=== PATIENT | male | born 1950 | race Caucasian/White ===

== ENCOUNTER 2017-07-09 06:59 | Emergency (ER) | payer MEDICARE ==
[2017-07-09] MEDS ORDERED: Nitroglycerin 0.4 MG TAB (25 Tab Bottle) ONE (07:31)
[2017-07-09 07:39] LABS: #Basophils 0.1 thou/uL (0.0-0.2); #Eosinphils 0.1 thou/uL (0.0-0.7); #Lymphocytes 1.7 thou/uL (1.20-3.40); #Monocytes 0.6 thou/uL (0.11-0.59); #Neutrophils 3.3 thou/uL (1.40-6.50); %Basophils 1.8 % (0.0-1.0); %Eosinophils 1.8 % (0.0-10.0); %Lymphocytes 29.2 % (21.0-51.0); %Monocytes 10.6 % (0.0-10.0); Hematocrit 45.9 % (42.0-52.0); Mean Platelet Volume 8.2 fL (7.4-10.4); Red Blood Cell (RBC) Count 4.74 mill/uL (4.70-6.10); White Blood Cell (WBC) Count 5.8 thou/uL (4.8-10.8)
[2017-07-09 07:45] LABS: Prothrombin Time 12.5 SEC (12.0-14.7)
--- NOTE | 2017-07-09 07:58 | RAD ---
AP VIEW CHEST: Date: 07/09/17 HISTORY: Chest pain. FINDINGS: Comparison made to previous exam from 02/02/17. AP view of chest demonstrates the lungs to be well aerated. No evidence of active intrathoracic disea se seen. No evidence of effusions, pneumonia, or pneumothorax seen. IMPRESSION: Unremarkable AP view of chest. POS: [facility]
[2017-07-09 08:00] LABS: ALT (SGPT) 16 U/L (8-55); AST (SGOT) 18 U/L (5-34); Alkaline Phosphatase 66 U/L (40-150); Anion Gap 10 mmol/L (10-20); BUN (Urea Nitrogen) 17 mg/dL (8.4-25.7); Calc. Creatinine Clearance 0 mL/min (70-130); Calcium 9.1 mg/dL (7.8-10.44); Carbon Dioxide 28 mmol/L (23-31); Chloride 103 mmol/L (98-107); Estimated GFR-MDRD Greater than 90; Globulin 2.9 g/dL (2.4-3.5); Lipase 21 U/L (8-78); Magnesium 2.5 mg/dL (1.6-2.6); Protein, Total 6.9 g/dL (5.8-8.1)
[2017-07-09 08:04] LABS: Troponin I Less than 0.010 ng/mL (< 0.028)
[2017-07-09 11:07] LABS: Troponin I Less than 0.010 ng/mL (< 0.028)
== END 2017-07-09 11:30 | disposition home or self-care (01) ==
LOC: ERS 06:59
DX: R07.89 Other chest pain (principal); M25.512 Pain in left shoulder; E78.5 Hyperlipidemia, unspecified; K21.9 Gastro-esophageal reflux disease without esophagitis; I10 Essential (primary) hypertension; F17.210 Nicotine dependence, cigarettes, uncomplicated; Z87.442 Personal history of urinary calculi; Z79.82 Long term (current) use of aspirin; Z79.899 Other long term (current) drug therapy
CPT/HCPCS: 36415; 71010; 80053; 81001; 82553; 83690; 83735; 84484; 85025; 85610; 87086; 93005

== ENCOUNTER 2017-07-10 13:39 | Outpatient (CLI) | payer MEDICARE ==
--- NOTE | 2017-07-10 15:44 | ULT ---
ULTRASOUND RETROPERITONEUM COMPLETE: (RENAL) DATE: 07-10-17 HISTORY: 67-year-old female with frequency of micturition. FINDINGS: Right kidney: 10.5 x 6 x 6.5 cm Left kidney: 12.5 x 7 x 6.5 cm There is a 5 x 5 x 4 cm partially exophytic parenchymal cyst at the left renal mid-lower pole anterio rly. No hydronephrosis bilaterally. Pre void urinary bladder volume is 40 ml at the time of this scan, and the bladder is difficult to ev aluate because it is not full. IMPRESSION: 1. A 5 cm left renal cyst. 2. No other renal pathology identified. 3. Poor evaluation of the urinary bladder. BRUCE Carmichael POS: [facility]
== END 2017-07-10 13:40 | disposition home or self-care (01) ==
LOC: ULT 13:39
PROVIDERS: ATTEND Urology
DX: R35.0 Frequency of micturition (principal); N28.1 Cyst of kidney, acquired
CPT/HCPCS: 76770

== ENCOUNTER 2018-01-02 09:03 | Outpatient (CLI) | payer MEDICARE ==
[2018-01-02 10:02] LABS: Bilirubin Negative (Negative); Blood, Urine Negative (Negative); Clarity Clear (Clear); Glucose, Urine (Dipstick) Negative (Negative); Leukocyte Negative (Negative); Nitrite Negative (Negative); Protein, Urine (Dipstick) Negative (Neg-Trace); Specific Gravity, Urine 1.015 (1.005-1.030); Urobilinogen 0.2 mg/dL (0.2-1.0); pH, Urine 7.5 (5.0-9.0)
[2018-01-02 10:11] LABS: Anion Gap 14 mmol/L (10-20); BUN (Urea Nitrogen) 22 mg/dL (8.4-25.7); Calc. Creatinine Clearance 0 mL/min (70-130); Calcium 9.4 mg/dL (7.8-10.44); Carbon Dioxide 27 mmol/L (23-31); Chloride 104 mmol/L (98-107); Estimated GFR-MDRD Greater than 90; Glucose 101 mg/dL (80-115); Potassium 3.9 mmol/L (3.5-5.1); Sodium 141 mmol/L (136-145)
[2018-01-02 11:02] LABS: RBC/HPF None Seen HPF (0-3); Squamous Epithelial 0-3 HPF (0-3); WBC/HPF 0-3 HPF (0-3)
[2018-01-02 11:03] LABS: Bacteria/HPF None Seen HPF (None Seen)
--- NOTE | 2018-01-02 11:45 | ULT ---
RENAL ULTRASOUND: HISTORY: Cystic kidney disease. Multiple renal calculi. COMPARISON: 12/09/16, 07/10/17. TECHNIQUE: Sagittal and transverse imaging of the kidneys is performed. FINDINGS: There is bilateral renal cortical thinning. No hydronephrosis. The right kidney measures 7.3 x 5.8 x 11.7 cm. The left kidney measures 7.4 x 6.9 x 12.4 cm. There are echogenic foci in the left and r ight renal cortex suggesting cortical-based calcifications. No evidence of obstruction. There is an exophytic anechoic focus emanating from the inferior aspect of the left kidney, similar in location to the previous examination. The lesion measures 5.4 x 4.6 x 4.2 cm. Limited evaluation of the urinary bladder. The prostate gland appears to be enlarged and causes mass effect upon the floor of the bladder. Enlarged prostate gland measures 3.8 x 4.0 x 4. 3 cm. IMPRESSION: 1. Redemonstration of an essentially stable cyst emanating from the lower pole of the left kidney. 2. Punctate echogenic foci in the kidneys, compatible with parenchymal calculi. 3. Enlarged prostate gland. POS: [facility]
== END 2018-01-02 09:04 | disposition home or self-care (01) ==
LOC: SCSULT 09:03
PROVIDERS: ATTEND Urology
DX: N20.0 Calculus of kidney (principal); Z12.5 Encounter for screening for malignant neoplasm of prostate; N40.1 Benign prostatic hyperplasia with lower urinary tract symptoms; N35.9 Urethral stricture, unspecified; R31.29 Other microscopic hematuria; R35.0 Frequency of micturition; Q61.9 Cystic kidney disease, unspecified; R93.421 Abnormal radiologic findings on diagnostic imaging of right kidney; R93.422 Abnormal radiologic findings on diagnostic imaging of left kidney; Z87.442 Personal history of urinary calculi
CPT/HCPCS: 36415; 76770; 80048; 81001; 87077; 87086; 87186; 88112; G0103

== ENCOUNTER 2019-01-16 09:15 | Outpatient (CLI) | payer MEDICARE ==
--- NOTE | 2019-01-16 09:59 | RAD ---
EXAM: Supine abdomen: INDICATIONS: Enlarged prostate COMPARISON: 12/07/2014 FINDINGS: Nonspecific bowel gas pattern. Scattered stool and gas throughout colon. Scattered small antonella wel gas without significant small bowel dilatation. No soft tissue mass effect or abnormal calcification. Mild degenerative changes in the spine. IMPRESSION: Nonspecific bowel gas pattern
--- NOTE | 2019-01-16 10:07 | ULT ---
EXAM: Renal ultrasound: INDICATIONS: Enlarged prostate COMPARISON: None. FINDINGS: Both kidneys measure approximately 12 cm length. 5 cm cyst from the inferior pole left kidney. No hydronephrosis or renal mass lesion. Mild cortical thinning. Cortical echogenicity appears normal. Urinary bladder contracted. Prevoid bladder volume recorded 18 cc. IMPRESSION: Left renal cyst as described.
== END 2019-01-16 09:16 | disposition home or self-care (01) ==
LOC: ULT 09:15
PROVIDERS: ATTEND Urology
DX: N40.1 Benign prostatic hyperplasia with lower urinary tract symptoms (principal); Q61.01 Congenital single renal cyst; Z87.442 Personal history of urinary calculi
CPT/HCPCS: 36415; 74018; 76770; 80048; 81001; 87086

== ENCOUNTER 2019-03-04 10:56 | Outpatient (CLI) | payer MEDICARE ==
--- NOTE | 2019-03-04 11:25 | RAD ---
KUB: HISTORY: Enlarged prostate with urinary tract infection symptoms. History of renal calculi and congenital juan c al cysts. COMPARISON: 01/16/2019 FINDINGS: A single view of the abdomen shows a nonspecific, nonobstructed bowel gas pattern. No suspicious darci cifications are seen. Degenerative changes are seen in the spine. IMPRESSION: No urinary collecting system calcifications identified. POS: [facility]
== END 2019-03-04 10:57 | disposition home or self-care (01) ==
LOC: RAD 10:56
PROVIDERS: ATTEND Urology
DX: N40.1 Benign prostatic hyperplasia with lower urinary tract symptoms (principal); Q61.01 Congenital single renal cyst; Z87.442 Personal history of urinary calculi
CPT/HCPCS: 36415; 74018; 81001; 87086; G0103

== ENCOUNTER 2019-04-09 12:47 | Outpatient (CLI) | payer MEDICARE ==
[2019-04-09 14:45] LABS: Bacteria/HPF None Seen HPF (None Seen); Bilirubin Negative (Negative); Blood, Urine Negative (Negative); Clarity Clear (Clear); Glucose, Urine (Dipstick) Normal (Negative); Hemoglobin 14.2 g/dL (14.0-18.0); Leukocyte Negative Leu/uL (Negative); Mean Corpuscular HGB CONC 33.8 g/dL (32.0-36.0); Mean Corpuscular Hemoglobin 31.5 pg (27.0-31.0); Mean Corpuscular Volume 93.2 fL (78.0-98.0); Mean Platelet Volume 9.2 fL (7.4-10.4); Nitrite Negative (Negative); Platelet Count 219 thou/uL (130-400); Protein, Urine (Dipstick) Negative (Neg-Trace); RBC Distribution Width 12.7 % (11.5-14.5); RBC/HPF 0-3 HPF (0-3); Red Blood Cell (RBC) Count 4.52 mill/uL (4.70-6.10); Squamous Epithelial 0-3 HPF (0-3); WBC/HPF 0-3 HPF (0-3); White Blood Cell (WBC) Count 9.1 thou/uL (4.8-10.8)
[2019-04-09 14:51] LABS: PTT 30.6 SEC (22.9-36.1); Prothrombin Time 12.9 SEC (12.0-14.7)
[2019-04-09 15:06] LABS: Anion Gap 14 mmol/L (10-20); BUN (Urea Nitrogen) 18 mg/dL (8.4-25.7); Calc. Creatinine Clearance 0 mL/min (70-130); Calcium 9.7 mg/dL (7.8-10.44); Carbon Dioxide 25 mmol/L (23-31); Chloride 105 mmol/L (98-107); Estimated GFR-MDRD Greater than 90; Glucose 105 mg/dL (80-115); Potassium 3.5 mmol/L (3.5-5.1); Sodium 140 mmol/L (136-145)
--- NOTE | 2019-04-10 17:29 | EKG ---
Test Reason : Blood Pressure : / mmHG Vent. Rate : 072 BPM Atrial Rate : 072 BPM P-R Int : 190 ms QRS Dur : 090 ms QT Int : 370 ms P-R-T Axes : 052 001 009 degrees QTc Int : 405 ms Sinus rhythm with Fusion complexes Low voltage QRS Cannot rule out Anterior infarct , age undetermined Abnormal ECG Confirmed by ALIYAH JOEL ([id number]) on 04/10/2019 5:29:17 PM Referred By: BROOKE Confirmed By:ALIYAH JOEL
== END 2019-04-09 12:48 | disposition home or self-care (01) ==
LOC: LABBT 12:47
PROVIDERS: ATTEND Urology
DX: Z01.818 Encounter for other preprocedural examination (principal); Z12.5 Encounter for screening for malignant neoplasm of prostate; N40.1 Benign prostatic hyperplasia with lower urinary tract symptoms; R35.0 Frequency of micturition; N35.919 Unspecified urethral stricture, male, unspecified site; Q61.9 Cystic kidney disease, unspecified; R31.29 Other microscopic hematuria; Z87.898 Personal history of other specified conditions; Z87.442 Personal history of urinary calculi
CPT/HCPCS: 80048; 81001; 85027; 85610; 85730; 87086; 93005; 93010

== ENCOUNTER 2019-04-23 06:04 | Day surgery (SDC) | payer MEDICARE ==
[2019-04-09 13:10] VITALS: BMI 44.6
[2019-04-23] MEDS ORDERED: Levofloxacin 500 mg/D5W 100 ml Premix Bag ONE (07:12)
[2019-04-23] MEDS ORDERED: Fentanyl 100 MCG/2 ML VIAL ONE ×2 (07:13→09:57)
[2019-04-23] MEDS ORDERED: Midazolam HCl 2 mg/2 ml Vial ONE (07:13)
[2019-04-23] MEDS ORDERED: Propofol 500 MG/50 ML VIAL ONE (07:13)
[2019-04-23] MEDS ORDERED: Oxybutynin 5 MG TAB ONE (09:50)
[2019-04-23] MEDS ORDERED: Phenazopyridine HCl 97.5 MG TABLET ONE (09:50)
[2019-04-23] MEDS ORDERED: HYDROcodone/Acetaminophen 5/325 mg Tablet ONE (10:41)
--- NOTE | 2019-04-23 11:17 | OP ---
DATE OF PROCEDURE: 04/23/2019 PRIMARY CARE PHYSICIAN: Dr. Yasmani Arias. PREOPERATIVE DIAGNOSES: 1. A 69-year-old male with history of benign prostatic hypertrophy. 2. Fossa navicularis, meatus, mild urethral stenosis. 3. Bulbar stricture. POSTOPERATIVE DIAGNOSES: 1. A 69-year-old male with history of benign prostatic hypertrophy. 2. Fossa navicularis, meatus, mild urethral stenosis. 3. Bulbar stricture. PROCEDURES PERFORMED: 1. Cystoscopy. 2. Meatal calibration and dilatation. 3. Direct vision internal urethrotomy of bulbar stricture. 4. UroLift implant x6. 5. An 18-Uruguayan Jackson tip Maza catheter placed without guidewire assist, 10 mL insufflated. ANESTHESIA: LMA. COMPLICATIONS: None apparent. DISPOSITION: To recovery room in stable condition. SPECIMENS: None. INDICATIONS FOR PROCEDURE AND HISTORY: Mr. Krishnamurthy is a 69-year-old male, well known to me with history of prior retention, penile bulbar urethral stricture, BPH, and history of kidney stones. He desired to proceed with UroLift implant, concomitant treatment of his urethral stricture. Risks and complications and indications were reviewed with him in detail. Risks and complications including, but not limited to, bleeding, pain, infection, injury to adjacent organs, urosepsis, migration of UroLift implant resulting in incrustation requiring secondary procedure, chronic pain, injury to adjacent structures, recurrent nature of urethral stricture disease reviewed and he desired to proceed. DESCRIPTION OF PROCEDURE: After an informed consent was signed, the patient was taken to the operating room, placed in a dorsal lithotomy position with the genital area prepped and draped in the usual surgical sterile fashion. Bilateral RAFAELA hose SCDs and broad-spectrum antibiotics were provided. A 21-Uruguayan cystoscope was 1st utilized. There was some resistance at the meatus fossa. Therefore, we used Raphael sounds to calibrate his meatus 16-Uruguayan easily and we dilated to 24-Uruguayan with ease. Subsequently, the 21-Uruguayan scope was able to be passed. His urethral mucosa did demonstrate diffuse area of fibrotic changes. There were intermittent areas of stricture along the proximal penile bulbar urethra. I was able to gently negotiate the scope to the level of the prostate into the bladder. Bilobar hyperplasia with moderate obstruction was noted with no median bar. UOs were away from the bladder neck as previously staged. At this time, we transitioned to a 21-Uruguayan UroLift cystoscope with a 0-degree lens. We re-staged the prostatic urethra and the first implant was delivered, minimum 1.5 cm distal to the bladder neck. We treated the left side 1st, creating an anterior channel. Total of 6 implants were required to create a nice open anterior channel. At the end of the procedure, his bladder neck was wide open, with a good anterior channel. At the apex, there was some bulging of the apical tissue; however, this was nonobstructing. Therefore, we did not treat this region. We took intraoperative pictures, demonstrating a good anterior channel. I re-staged his urethral stricture. One of the strictures were somewhat close to the sphincter. Therefore, I did not perform a DVIU and it appeared to be wide caliber and dilated with the scope. There was a 2nd annular stricture at the bulbar urethra with persistent annular morphology. Therefore, using an [facility] DVIU cold knife, we released the stricture anteriorly. Subsequently, I was able to pass an 18-Uruguayan Jackson tip without guidewire assist to the level of the bladder, 10 mL insufflated, and he tolerated the procedure well. He was discharged with an indwelling Maza catheter, ciprofloxacin one p.o. b.i.d. x10 days, Azo p.r.n., Colace p.r.n., tramadol #30 one p.o. q.6 h. p.r.n. at 50 mg, VESIcare 5 mg one p.o. daily for 7 days. Appointment with me next for catheter removal, voiding trial. He was advised to continue his BPH medications, hold aspirin until followup appointment. Job ID: [id number]
--- NOTE | 2019-04-24 11:31 | HP ---
HISTORY OF PRESENT ILLNESS: Mr. Krishnamurthy is a 69-year-old male with history of BPH, history of urinary retention, PVR of 200 mL on dual medical therapy, presents today for cysto UroLift. He previously underwent workup with cystoscopy, volume study. Also found to have prior history of fossa navicularis stricture, urethral stricture with concomitant treatment plan. PAST MEDICAL HISTORY: Includes hypertension, dyslipidemia, morbid obesity, GERD , arthritis, sleep apnea, liver cyst. PAST SURGICAL HISTORY: Cystoscopy, total knee replacement, gastric sleeve, cholecystectomy, hernia repair, prior cystoscopy, DVIU. FAMILY HISTORY: Positive for diabetes. SOCIAL HISTORY: Former smoker, quit. ALLERGIES: TO BIAXIN AND BACTRIM. REVIEW OF SYSTEMS: 10-point review of systems as above, otherwise noncontributory. PHYSICAL EXAMINATION: VITAL SIGNS: Stable. HEENT: Grossly unremarkable. HEART: Regular rate. LUNGS: Clear. ABDOMEN: Morbidly obese. GENITOURINARY: Partially buried penis due to morbid obesity. JESUS, no gross nodules. EXTREMITIES: No significant calf tenderness. IMPRESSION AND PLAN: Mr. Krishnamurthy is a 69-year-old male with history of hypertension, morbid obesity, BPH, history of urethral stricture. He desires to discontinue his BPH medications, therefore presents for cysto, DVIU, possible urethral stricture dilatation, UroLift. Informed consent obtained and in chart. We will proceed with surgery as planned. Job ID: [id number] MTDD
== END 2019-04-23 13:30 | disposition home or self-care (01) ==
LOC: SDC 06:04
PROVIDERS: ATTEND Urology
PROC: 0TND8ZZ Release Urethra, Via Natural or Artificial Opening Endoscopic (ICD-10-PCS; principal; 2019-04-23)
PROC: 0T7D8DZ Dilation of Urethra with Intraluminal Device, Via Natural or Artificial Opening Endoscopic (ICD-10-PCS; 2019-04-23)
DX: N40.1 Benign prostatic hyperplasia with lower urinary tract symptoms (principal); R35.0 Frequency of micturition; R33.8 Other retention of urine; N35.911 Unspecified urethral stricture, male, meatal; N35.912 Unspecified bulbous urethral stricture, male; M19.90 Unspecified osteoarthritis, unspecified site; I10 Essential (primary) hypertension; E78.5 Hyperlipidemia, unspecified; K21.9 Gastro-esophageal reflux disease without esophagitis; G47.30 Sleep apnea, unspecified; Q61.9 Cystic kidney disease, unspecified; F17.290 Nicotine dependence, other tobacco product, uncomplicated; E66.01 Morbid (severe) obesity due to excess calories; Z68.41 Body mass index [BMI] 40.0-44.9, adult; Z79.82 Long term (current) use of aspirin; Z79.899 Other long term (current) drug therapy; Z88.2 Allergy status to sulfonamides; Z88.8 Allergy status to other drugs, medicaments and biological substances; Z98.84 Bariatric surgery status
CPT/HCPCS: 52276; C1889; C9740; J1956; J2250; J2704; J3010

== ENCOUNTER 2020-02-17 13:16 | Outpatient (CLI) | payer MEDICARE ==
--- NOTE | 2020-02-17 14:24 | ULT ---
RENAL ULTRASOUND: HISTORY: Followup renal cyst. COMPARISON: 01/16/2019 exam. FINDINGS: Real-time imaging of the right and left kidneys was performed. The right kidney measures 12 cm and t he left kidney measures 12 cm in length. There is an exophytic cyst involving more the inferior aspe ct of the left kidney. It measures 4.8 x 5.3 cm and is not felt to be substantially changed. There is an echogenic area within the mid pole region of the left kidney not definitely shadowing, therefor e I think unlikely to represent a calculus. IMPRESSION: 1. Stable appearance of the lower pole left renal cyst. 2. The bladder was almost empty at the time of this exam. POS: [facility]
== END 2020-02-17 13:17 | disposition home or self-care (01) ==
LOC: BICULT 13:16
PROVIDERS: ATTEND Urology
DX: N40.1 Benign prostatic hyperplasia with lower urinary tract symptoms (principal); Q61.9 Cystic kidney disease, unspecified; Z87.898 Personal history of other specified conditions
CPT/HCPCS: 36415; 76770; 81001; G0103

== ENCOUNTER 2020-02-28 00:29 | Observation (INO) | payer MEDICARE, OTHER ==
[2020-02-28 01:40] LABS: Bacteria/HPF 2+ HPF (None Seen); Bilirubin Negative (Negative); Blood, Urine 3+ (Negative); Clarity Turbid (Clear); Glucose, Urine (Dipstick) Normal (Negative); Ketone, Urine Negative (Negative); Leukocyte 25 Leu/uL (Negative); Nitrite Negative (Negative); Protein, Urine (Dipstick) 100 mg/dL (Neg-Trace); RBC/HPF Greater than 50 HPF (0-3); Specific Gravity, Urine 1.015 (1.002-1.036); Squamous Epithelial None Seen HPF (0-3); Urobilinogen Normal mg/dL (Less than 2); WBC/HPF 21-50 HPF (0-3); pH, Urine 5.5 (5.0-9.0)
[2020-02-28 04:24] LABS: #Basophils 0.1 thou/uL (0.0-0.2); #Eosinphils 0.1 thou/uL (0.0-0.7); #Monocytes 0.9 thou/uL (0.11-0.59); #Neutrophils 9.6 thou/uL (1.40-6.50); %Basophils 0.5 % (0.0-1.0); %Eosinophils 0.5 % (0.0-10.0); %Lymphocytes 16.1 % (21.0-51.0); %Monocytes 6.7 % (0.0-10.0); %Neutrophils 76.1 % (42.0-75.0); Hemoglobin 14.5 g/dL (14.0-18.0); Mean Corpuscular HGB CONC 32.5 g/dL (32.0-36.0); Mean Corpuscular Hemoglobin 31.3 pg (27.0-31.0); Mean Corpuscular Volume 96.3 fL (78.0-98.0); Mean Platelet Volume 9.2 fL (7.4-10.4); Platelet Count 258 thou/uL (130-400); RBC Distribution Width 12.9 % (11.5-14.5); Red Blood Cell (RBC) Count 4.62 mill/uL (4.70-6.10); White Blood Cell (WBC) Count 12.7 thou/uL (4.8-10.8)
[2020-02-28 04:43] LABS: Anion Gap 13 mmol/L (10-20); BUN (Urea Nitrogen) 21 mg/dL (8.4-25.7); Calc. Creatinine Clearance 0 mL/min (70-130); Calcium 9.8 mg/dL (7.8-10.44); Carbon Dioxide 26 mmol/L (23-31); Chloride 104 mmol/L (98-107); Estimated GFR-MDRD 65; Glucose 127 mg/dL (80-115); Potassium 4.2 mmol/L (3.5-5.1); Sodium 139 mmol/L (136-145)
[2020-02-28 07:08] VITALS: BMI 42.7
[2020-02-28] MEDS ORDERED: diphenhydrAMINE 50 MG/ML VIAL IVP PRN (09:41)
[2020-02-28] MEDS ORDERED: HYDROcodone/Acetaminophen 5/325 mg Tablet PO PRN (09:41)
[2020-02-28] MEDS ORDERED: hydrALAZINE 20 MG/ML VIAL SLOW IVP PRN (09:41)
[2020-02-28] MEDS ORDERED: Zolpidem Tartrate 5 MG TAB PO PRN (09:41)
[2020-02-28] MEDS ORDERED: Ketorolac Tromethamine 30 MG/ML VIAL IVP PRN (09:41)
[2020-02-28] MEDS ORDERED: Phenazopyridine HCl 97.5 MG TABLET PO PRN (09:41)
--- NOTE | 2020-02-28 10:59 | OP ---
DATE OF PROCEDURE: 02/28/2020 PROCEDURE: Under sterile conditions, the drainage bag was removed from the drainage port of the three-way catheter. A catheter tip syringe was used to irrigate the bladder with about 300 mL of normal saline removing a few small clots. The drainage bag was then reconnected and CBI re-initiated. The patient tolerated the procedure well. Job ID: [id number]
--- NOTE | 2020-02-28 11:04 | HP ---
CHIEF COMPLAINT: Catheter pain, hematuria. HISTORY OF PRESENT ILLNESS: This is a 69-year-old male with a history of enlarged prostate and urethral stricture, status post UroLift and DVIU in April 2019. He was recently seen by Dr. Deluna on February 25 as a work-in after calling the office reporting that he was passing blood clots in his urine. She performed cystoscopy with no obvious source of bleed and placed a 20-Citizen Of [place] 3-way catheter. Urinalysis at that time was unremarkable. Late yesterday, he presented to the emergency room in [place] with his catheter not draining. This was irrigated and he was discharged home. However, it again became clotted and he is having significant discomfort, so he presented to the emergency room here in [place] overnight. Given that he had been to the emergency room twice within 12 hours, I elected to have him admitted. He has been managed with CBI since admission and currently, his urine is light pink on slow CBI. He reports that his discomfort has almost completely resolved. He currently denies suprapubic pain, flank pain, nausea, vomiting, fevers and chills, headaches, chest pains, or difficulty breathing. PAST MEDICAL HISTORY: Kidney stones, obesity, reflux, hyperlipidemia, hypertension. PAST SURGICAL HISTORY: UroLift, DVIU x2, gastric sleeve, bilateral knee replacement. SOCIAL HISTORY: The patient smokes cigars about twice per month. Otherwise, no cigarette smoking, no substance abuse, lives with his in [place], currently retired. ALLERGIES: CLARITHROMYCIN, SULFAMETHOXAZOLE. CURRENT MEDICATIONS: Reviewed, no pertinent urology medications. REVIEW OF SYSTEMS: 12-point review of systems performed, negative except as mentioned in my HPI. PHYSICAL EXAMINATION: VITAL SIGNS: Afebrile. Vitals are stable. GENERAL: No acute distress, conversant. HEENT: Head, normocephalic and atraumatic. Extraocular movements intact. Sclerae nonicteric. NECK: Supple. Trachea midline. LUNGS: Breathing unlabored. Symmetric chest expansion. HEART: Regular rate and rhythm. ABDOMEN: Soft, nontender, nondistended. : No suprapubic or flank tenderness. Three-way 20-Citizen [place] Maza catheter in good position draining light pink urine on slow CBI, small amount of blood around the meatus. EXTREMITIES: No peripheral edema or clubbing. SKIN: Warm and dry. PSYCHIATRIC: Normal mood and affect. NEUROLOGIC: Alert and oriented x3. LABORATORY DATA: Lab work reviewed. White count 12.7, hemoglobin 14.5. Creatinine 1.11. Urinalysis; 25 leukocyte esterase, negative nitrite. ASSESSMENT AND PLAN: On hospital day 1, gross hematuria with clot retention, benign prostatic hypertrophy with lower urinary tract symptoms. We are going to arrange a CT urogram while he is here to evaluate his upper tracts as his recent cystoscopy was unremarkable. Continue CBI, titrate as able. Given the positive leukocyte esterase, I am starting him on ceftriaxone while he is here. 75 minutes spent in the patient care. Job ID: [id number]
[2020-02-28] MEDS ORDERED: Iopamidol-370 76% 500 ML 1 ML ONE (12:21)
--- NOTE | 2020-02-28 12:32 | CT ---
CT ABDOMEN AND PELVIS PERFORMED WITH AND WITHOUT CONTRAST ENHANCEMENT: HISTORY: Hematuria for about a week. Surgical history of gastric sleeve and cholecystectomy. COMPARISON: A CT examination of 06/18/2015. FINDINGS: The lung bases are clear of infiltrative process. The liver, spleen, and pancreas regions appear unremarkable other than fatty change to the liver. Ga llbladder has been removed. Postop changes of the stomach are noted. The right and left adrenal glands and right and left kidneys are normal in size. A left renal cyst i s seen. It measures 5.4 cm. There are no renal calculi identified. There are additionally some smal l subcentimeter hypodensities involving both kidneys. These are too small to characterize but have a n appearance more suggestive of small cysts. No obstruction. No significant periaortic or mesenteri c adenopathy. CT OF PELVIS PERFORMED WITH AND WITHOUT CONTRAST ENHANCEMENT: A fat-containing paraumbilical hernia is seen. No pelvic lymphadenopathy or mass. The bladder has a Maza catheter in place. Postop changes in the prostate region are noted. There are arthritic changes of the spine. IMPRESSION: 1. Bilateral renal cysts. 2. Fatty changes of the liver. 3. Maza catheter in place within the bladder. POS: [facility]
[2020-02-28] MEDS: cefTRIAXone\\ROCEPHIN 1 GM in Sodium Chloride 0.9% 100 ML IVPB SCH (12:41)
[2020-02-28] MEDS: Hyoscyamine Sulfate SL 0.125 mg Tablet SL SCH ×3 (12:42→23:40)
[2020-02-28] MEDS: Sodium Chloride 0.9% 1,000 ML IV SCH (12:42)
[2020-02-28 14:15] LABS: SARS-CoV-2 MS2 Positive; SARS-CoV-2 N Gene Negative; SARS-CoV-2 S Gene Negative; SARS-CoV-2 by NAA Not Detected (NotDetected); SARS-CoV-2 orf1ab Negative
[2020-02-28] MEDS: Docusate 100 MG CAP PO SCH (20:19)
[2020-02-28] MEDS ORDERED: Atorvastatin Calcium 20 MG TAB PO SCH (21:00)
[2020-02-29] MEDS: Sodium Chloride 0.9% 1,000 ML IV SCH ×3 (00:10→08:37)
[2020-02-29] MEDS: Hyoscyamine Sulfate SL 0.125 mg Tablet SL SCH ×2 (05:32→11:27)
[2020-02-29 07:33] VITALS: TEMP 98.2
[2020-02-29] MEDS: Docusate 100 MG CAP PO SCH (08:31)
[2020-02-29] MEDS ORDERED: Aspirin Chewable 81 MG TAB PO SCH (09:00)
[2020-02-29 10:44] VITALS: BP 140/54
[2020-02-29] MEDS: cefTRIAXone\\ROCEPHIN 1 GM in Sodium Chloride 0.9% 100 ML IVPB SCH (11:26)
--- NOTE | 2020-03-01 12:26 | DIS ---
DATE OF ADMISSION: 02/28/2020 DATE OF DISCHARGE: 02/29/2020 CHIEF COMPLAINT: Catheter pain, hematuria. HOSPITAL COURSE: The patient presented to the emergency room here on February 27 early in the morning reporting issues with the catheter not draining secondary to blood clots and catheter pain. His catheter was irrigated and started on CBI and he was admitted under observation. Lab work was stable in the morning and CT scan was obtained later in the day to complete hematuria workup showing no upper tract abnormalities. The following morning, February 28, his urine remained clear off CBI. He was having no discomfort. He was tolerating oral intake and stable for discharge home. DISCHARGE PHYSICAL EXAMINATION: GENERAL: No acute distress, conversant. LUNGS: Unlabored breathing. Symmetric chest expansion. HEART: Regular rate and rhythm. NECK: Supple. Trachea midline. ABDOMEN: Soft, nontender, nondistended. No suprapubic tenderness. No flank tenderness. Normal penile exam. Maza catheter in good position, draining clear urine off CBI. SKIN: Warm and dry. NEUROLOGIC: Alert and oriented x3. EXTREMITIES: No peripheral edema or clubbing. PSYCHIATRIC: Normal mood and affect. DISCHARGE DIAGNOSES: Hematuria, enlarged prostate with lower urinary tract symptoms, hypertension. DISCHARGE PLAN: The patient already has followup scheduled for tomorrow morning at 10:[address] Deluna. DISCHARGE INSTRUCTIONS: Light nonstressful activities, resume normal diet, continue Cipro as previously prescribed. Job ID: [id number]
== END 2020-02-29 14:15 | disposition home or self-care (01) ==
LOC: ERS 00:29 → SURG B 06:41
PROVIDERS: ADMIT Urology; ATTEND Urology
DX: R31.0 Gross hematuria (principal); N40.1 Benign prostatic hyperplasia with lower urinary tract symptoms; I10 Essential (primary) hypertension; T83.84XA Pain due to genitourinary prosthetic devices, implants and grafts, initial encounter; T83.098A Other mechanical complication of other urinary catheter, initial encounter; E78.5 Hyperlipidemia, unspecified; K21.9 Gastro-esophageal reflux disease without esophagitis; F17.290 Nicotine dependence, other tobacco product, uncomplicated; N28.1 Cyst of kidney, acquired; K42.9 Umbilical hernia without obstruction or gangrene; K76.0 Fatty (change of) liver, not elsewhere classified; E78.00 Pure hypercholesterolemia, unspecified; E66.9 Obesity, unspecified; Z68.41 Body mass index [BMI] 40.0-44.9, adult; Z79.82 Long term (current) use of aspirin; Z79.899 Other long term (current) drug therapy; Z88.1 Allergy status to other antibiotic agents; Z88.2 Allergy status to sulfonamides; Z96.653 Presence of artificial knee joint, bilateral; Z98.84 Bariatric surgery status; Z20.828 Contact with and (suspected) exposure to other viral communicable diseases
CPT/HCPCS: 74178; 80048; 85025; 99284; U0003; 81003; 81015; 87635; 96361; 96365; 96375; 96376; G0378; J0360; J0696; J3490; Q9967

== ENCOUNTER 2020-03-02 12:10 | Outpatient (CLI) | payer MEDICARE | END 2020-03-02 12:11 | disposition home or self-care (01) | LOC: LABBT 12:10 | PROVIDERS: ATTEND Urology | DX: Z01.810 Encounter for preprocedural cardiovascular examination (principal); N40.0 Benign prostatic hyperplasia without lower urinary tract symptoms | CPT/HCPCS: 88112; 93005; 93010 ==

== ENCOUNTER 2020-03-03 07:50 | Observation (INO) | payer MEDICARE ==
[2020-03-02 13:56] LABS: INR-International Normal Ratio 0.9; PTT 27.3 sec (22.9-36.1); Prothrombin Time 12.3 sec (12.0-14.7)
[2020-03-02 14:00] LABS: #Basophils 0.1 thou/uL (0.0-0.2); #Eosinphils 0.1 thou/uL (0.0-0.7); #Lymphocytes 1.7 thou/uL (1.20-3.40); #Monocytes 0.6 thou/uL (0.11-0.59); #Neutrophils 6.7 thou/uL (1.40-6.50); %Basophils 0.9 % (0.0-1.0); %Eosinophils 1.3 % (0.0-10.0); %Lymphocytes 18.2 % (21.0-51.0); %Monocytes 6.9 % (0.0-10.0); %Neutrophils 72.6 % (42.0-75.0); Hemoglobin 14.5 g/dL (14.0-18.0); Mean Corpuscular HGB CONC 32.8 g/dL (32.0-36.0); Mean Corpuscular Hemoglobin 31.7 pg (27.0-31.0); Mean Corpuscular Volume 96.7 fL (78.0-98.0); Mean Platelet Volume 9.3 fL (7.4-10.4); Platelet Count 224 thou/uL (130-400); RBC Distribution Width 12.7 % (11.5-14.5); Red Blood Cell (RBC) Count 4.56 mill/uL (4.70-6.10); White Blood Cell (WBC) Count 9.2 thou/uL (4.8-10.8)
[2020-03-02 14:13] VITALS: BMI 46.7
[2020-03-02 14:24] LABS: Anion Gap 13 mmol/L (10-20); BUN (Urea Nitrogen) 19 mg/dL (8.4-25.7); Calc. Creatinine Clearance 0 mL/min (70-130); Calcium 9.2 mg/dL (7.8-10.44); Carbon Dioxide 26 mmol/L (23-31); Chloride 107 mmol/L (98-107); Estimated GFR-MDRD 76; Glucose 136 mg/dL (80-115); Potassium 3.6 mmol/L (3.5-5.1); Sodium 142 mmol/L (136-145)
[2020-03-03] MEDS ORDERED: Lidocaine 1% PF 5 ML VIAL ONE (09:00)
[2020-03-03] MEDS ORDERED: PROPOFOL 200 MG/20 ML VIAL ONE (09:00)
[2020-03-03] MEDS ORDERED: Ondansetron PF 4 MG/2 ML Vial ONE (09:00)
[2020-03-03] MEDS ORDERED: Metoprolol Tartrate 5 MG/5 ML VIAL ONE (09:00)
[2020-03-03] MEDS ORDERED: Succinylcholine Chloride 20 MG/ML 10 ml SYRINGE FS ONE (09:00)
[2020-03-03] MEDS ORDERED: Rocuronium Bromide 10 MG/ML (10ML VIAL) ONE (09:00)
[2020-03-03] MEDS ORDERED: Metoclopramide HCl 10 MG/2 ML VIAL ONE (09:00)
[2020-03-03] MEDS ORDERED: Levofloxacin 500 mg/D5W 100 ml Premix Bag ONE (09:26)
[2020-03-03] MEDS ORDERED: Iothalamate Meglumine 60% 50 ML VIAL FS ONE (11:50)
[2020-03-03] MEDS ORDERED: Fentanyl 100 MCG/2 ML VIAL ONE (11:51)
[2020-03-03] MEDS ORDERED: Famotidine/PF 20 mg/2ml Vial ONE (11:52)
[2020-03-03] MEDS ORDERED: SUGAMMADEX SODIUM 500 MG/5 ML VIAL ONE (12:01)
[2020-03-03] MEDS ORDERED: Promethazine HCl 25 MG/ML VIAL IM PRN (13:09)
[2020-03-03] MEDS ORDERED: Promethazine HCl 25 MG/ML VIAL SLOW IVP PRN (13:09)
[2020-03-03] MEDS ORDERED: Ondansetron HCl/PF 4 MG/2 ML Vial IVP PRN (13:09)
[2020-03-03] MEDS ORDERED: Zolpidem Tartrate 5 MG TAB PO PRN (13:20)
[2020-03-03] MEDS ORDERED: Mag-Al 1200 mg/1200 mg/30 ML UDCUP PO PRN (13:20)
[2020-03-03] MEDS ORDERED: Phenazopyridine HCl 97.5 MG TABLET PO PRN (13:20)
[2020-03-03] MEDS ORDERED: HYDROcodone/Acetaminophen 5/325 mg Tablet PO PRN ×2 (13:20)
[2020-03-03] MEDS ORDERED: Docusate 100 MG CAP PO PRN (13:20)
[2020-03-03] MEDS ORDERED: hydrALAZINE 20 MG/ML VIAL SLOW IVP PRN ×2 (13:20)
[2020-03-03] MEDS ORDERED: diphenhydrAMINE 50 MG/ML VIAL IVP PRN (13:20)
[2020-03-03 13:59] LABS: #Basophils 0.1 thou/uL (0.0-0.2); #Eosinphils 0.2 thou/uL (0.0-0.7); #Lymphocytes 1.9 thou/uL (1.20-3.40); #Monocytes 0.7 thou/uL (0.11-0.59); #Neutrophils 4.7 thou/uL (1.40-6.50); %Basophils 1.4 % (0.0-1.0); %Eosinophils 2.2 % (0.0-10.0); %Lymphocytes 24.9 % (21.0-51.0); %Monocytes 9.1 % (0.0-10.0); %Neutrophils 62.5 % (42.0-75.0); Hemoglobin 13.7 g/dL (14.0-18.0); Mean Corpuscular HGB CONC 32.6 g/dL (32.0-36.0); Mean Corpuscular Hemoglobin 31.9 pg (27.0-31.0); Mean Corpuscular Volume 97.9 fL (78.0-98.0); Mean Platelet Volume 8.6 fL (7.4-10.4); Platelet Count 186 thou/uL (130-400); RBC Distribution Width 12.7 % (11.5-14.5); Red Blood Cell (RBC) Count 4.29 mill/uL (4.70-6.10); White Blood Cell (WBC) Count 7.6 thou/uL (4.8-10.8)
[2020-03-03] MEDS ORDERED: cefTRIAXone\\ROCEPHIN 1 GM in Sodium Chloride 0.9% 100 ML IVPB SCH (14:00)
[2020-03-03 14:19] LABS: Anion Gap 14 mmol/L (10-20); BUN (Urea Nitrogen) 19 mg/dL (8.4-25.7); Calc. Creatinine Clearance 180 mL/min (70-130); Calcium 8.7 mg/dL (7.8-10.44); Carbon Dioxide 24 mmol/L (23-31); Chloride 105 mmol/L (98-107); Estimated GFR-MDRD Greater than 90; Glucose 104 mg/dL (80-115); Potassium 3.8 mmol/L (3.5-5.1); Sodium 139 mmol/L (136-145)
[2020-03-03] MEDS: Sodium Chloride 0.9% 1,000 ML IV SCH ×2 (15:29→20:34)
--- NOTE | 2020-03-03 15:43 | OP ---
DATE OF PROCEDURE: 03/03/2020 PREOPERATIVE DIAGNOSES: 1. A 69-year-old male with history of benign prostatic hyperplasia, status post UroLift. 2. History of intermittent gross hematuria. POSTOPERATIVE DIAGNOSES: 1. A 69-year-old male with history of benign prostatic hyperplasia, status post UroLift. 2. History of intermittent gross hematuria. PROCEDURES PERFORMED: Cystoscopy, laser vaporization of the prostate, retrieval of UroLift implant x1., Meatal calibration dilatation with Jamaal sounds ANESTHESIA: General. COMPLICATIONS: None apparent. DISPOSITION: To recovery room in stable condition. INDICATIONS FOR PROCEDURE AND HISTORY: Mr. Krishnamurthy is a pleasant 69-year-old male with history of BPH, he was deemed a good surgical candidate for UroLift based on his prostate volume and cystoscopy and underwent UroLift implant uneventfully back in April 2019. A total of 6 implants were placed, he also underwent meatal dilatation concomitantly at that time. Implants demonstrated good anterior channel and he is very satisfied with his urinary caliber and flow. I recently saw him in my office as he had intermittent gross hematuria. As there was persistent hematuria, a local cystoscopy was performed demonstrating no exposed implants per se. No evidence of bladder neck migration of the implant was noted. No active bleeding from the bladder was noted. There was mild prostatic oozing nonspecific. CT of the abdomen and pelvis demonstrated no acute pathology of concern. He presents today for cystoscopy, transurethral resection of prostate, fulguration of prostatic urethra. Risks and complications of the procedure were discussed with him in detail including, but not limited to, bleeding, pain, infection, injury to adjacent organs, bladder neck contractures, stricture formation. Possible secondary procedure was discussed with the patient in detail as there was no gross obvious evidence of active oozing on local cystoscopy. DESCRIPTION OF PROCEDURE: After an informed consent was signed, the patient was taken to the operating room, placed in a dorsal lithotomy position with the genital area prepped and draped in the usual surgical sterile fashion. A 21-Chadian cystoscope was utilized for cystoscopy. There was some resistance passing the 21-Chadian cystoscope. He does have previous history of meatal stenosis. We calibrated his meatus to about 18-Chadian and subsequently dilated to 26-Chadian without difficulty. Subsequently, the 21-Chadian cystoscope passed without difficulty. At this time, we staged the prostatic urethra. We parked at the area of verumontanum to see if there was any oozing. I did not see any active oozing from the prostatic urethra. We gently passed the scope into the prostatic urethra demonstrating dimpling effect from previous UroLift. I did not see any obvious exposed UroLift implant. Anterior channel as noted was adequate and he had good channel noted. Bladder was entered, which demonstrated no evidence of bladder stones. Bilateral clear efflux of urine was noted. As he recently had a Maza catheter, there was some inflammation of the trigone consistent with chronic Maza catheter. At this time, I transitioned to a 26-Chadian continuous sheet, an Olympus resectoscope with a visual obturator. We initially tried a prostate loop, however, as we were resecting the left lateral lobe to expose implants if any amendable, we did encroach an implant, and because of the conduction, this did cause a defect in our prostate loop. Therefore, we transitioned to the PlasmaButton. Using the appropriate setting for prostate, we gently ablated and fulgurated the prostatic urethra. We did expose one implant, which was easily retrieved intact. I did not further pursue obtaining a deep ablation because he has adequate anterior channel created for good flow. There did appear to be some dimpling effect on the left lateral where we retrieved the implant, and this may be the site that was intermittently oozing. There were some nonobstructing mucosal band of the prostatic urethra in this region. After the UroLift implant was removed from this junction, there was some bleeding from the site that we retrieved as anticipated. Using vaporization button we cauterized and obtained good hemostasis as much as we could. I did not aggressively marlen the defect as the implants were placed outside the prostate capsule. We visualized his prostatic urethra at the verumontanum after we performed our ablation and our fulguration of the previous UroLift site. I do not see any further active oozing of concern. I did perform a laser vaporization of the prostate at the anterior aspect of the prostate and near apex area that previous implants were not placed to avoid exposing implants that are already in good position. Good hemostasis was noted and a 22- [place] 3-way Maza catheter was placed without difficulty and 30 mL insufflated and CBI tubing demonstrated clear output. I will monitor the patient overnight with 23-hour observation with CBI. Anticipate the patient will be discharged with indwelling Maza catheter for few weeks to allow the prostatic urethra to heal. Job ID: [id number] MTDD
[2020-03-03] MEDS: Trospium 20 MG TAB PO SCH (20:31)
[2020-03-03] MEDS ORDERED: Atorvastatin Calcium 20 MG TAB PO SCH (21:00)
[2020-03-04] MEDS: Sodium Chloride 0.9% 1,000 ML IV SCH (04:47)
[2020-03-04 05:30] LABS: #Basophils 0.1 thou/uL (0.0-0.2); #Eosinphils 0.1 thou/uL (0.0-0.7); #Lymphocytes 1.6 thou/uL (1.20-3.40); #Monocytes 0.7 thou/uL (0.11-0.59); #Neutrophils 4.8 thou/uL (1.40-6.50); %Basophils 1.2 % (0.0-1.0); %Lymphocytes 21.4 % (21.0-51.0); %Monocytes 9.1 % (0.0-10.0); %Neutrophils 66.3 % (42.0-75.0); Mean Corpuscular Volume 96.7 fL (78.0-98.0); Mean Platelet Volume 9.1 fL (7.4-10.4); Platelet Count 196 thou/uL (130-400); RBC Distribution Width 12.7 % (11.5-14.5); White Blood Cell (WBC) Count 7.3 thou/uL (4.8-10.8)
[2020-03-04 05:50] LABS: Anion Gap 9 mmol/L (10-20); BUN (Urea Nitrogen) 15 mg/dL (8.4-25.7); Calc. Creatinine Clearance 197 mL/min (70-130); Calcium 8.1 mg/dL (7.8-10.44); Carbon Dioxide 28 mmol/L (23-31); Chloride 107 mmol/L (98-107); Estimated GFR-MDRD Greater than 90; Glucose 93 mg/dL (80-115); Potassium 3.6 mmol/L (3.5-5.1); Sodium 140 mmol/L (136-145)
[2020-03-04 07:41] VITALS: BP 138/72; TEMP 97.8
--- NOTE | 2020-03-04 08:38 | DIS ---
DATE OF ADMISSION: 03/03/2020 DATE OF DISCHARGE: 03/04/2020 DISPOSITION: Home. CONDITION: Stable. DRAINS: Maza catheter to gravity leg bag. DISCHARGE MEDICATIONS: 1. Azo [id number] p.r.n. for dysuria. 2. Ciprofloxacin 500 mg one p.o. b.i.d. for 10 days. DISCHARGE INSTRUCTIONS: No heavy lifting or strenuous activity. BRIEF HOSPITAL COURSE: Mr. Krishnamurthy is a pleasant 69-year-old male, whom I had been following with history of kidney stone and BPH. The patient with history of elevated PVR, underwent UroLift uneventfully last year. He re-presented with intermittent gross hematuria of unclear etiology. Cystoscopy demonstrated likely prostatic source as there was inflammation in the prostatic urethra, however, no acute bleeding was noted on local cystoscopy. There was no exposed urethral implant on cystoscopy. Due to recurrent gross hematuria, underwent staging CT, which was negative. Cytology negative and underwent laser vaporization of the prostatic urethra, removal of one implant that may have been the culprit for intermittent hematuria as there was some inflammatory component associated with it. He tolerated the procedure well, his CBI has been held this morning and urine output is clear. Expectations of intermittent hematuria due to recent surgery has been reviewed. I will monitor his urine output, if it is stable with patient ambulating, we would discharge home. The patient is to return to clinic next week for Maza catheter removal. Addendum, patient continues to have clear gorge urine discharge with catheter uneventful Job ID: [id number] MTDD
[2020-03-04] MEDS ORDERED: Non-Formulary Item 1 EACH (Biotin [Biotin] 1,000 MCG) PO SCH (09:00)
[2020-03-04] MEDS ORDERED: Cyanocobalamin (Vitamin B-12) 1,000 MCG TAB PO SCH (09:00)
[2020-03-04] MEDS ORDERED: Multivit, Therapeutic 1 TAB PO SCH (09:00)
[2020-03-04] MEDS ORDERED: Magnesium Oxide 250 MG TAB PO SCH (09:00)
[2020-03-04] MEDS: Trospium 20 MG TAB PO SCH (11:14)
[2020-03-04] MEDS ORDERED: Cholecalciferol 1,000 UNITS (25 MCG) TAB PO SCH (21:00)
== END 2020-03-04 12:38 | disposition home or self-care (01) ==
LOC: SDC 07:50 → SURG B 13:12
PROVIDERS: ADMIT Urology; ATTEND Urology
PROC: 0V508ZZ Destruction of Prostate, Via Natural or Artificial Opening Endoscopic (ICD-10-PCS; principal; 2020-03-03)
DX: N40.1 Benign prostatic hyperplasia with lower urinary tract symptoms (principal); R35.0 Frequency of micturition; R31.29 Other microscopic hematuria; R31.0 Gross hematuria; I10 Essential (primary) hypertension; E78.5 Hyperlipidemia, unspecified; K21.9 Gastro-esophageal reflux disease without esophagitis; G47.30 Sleep apnea, unspecified; E66.01 Morbid (severe) obesity due to excess calories; Z68.42 Body mass index [BMI] 45.0-49.9, adult; Z79.899 Other long term (current) drug therapy; Z87.891 Personal history of nicotine dependence; Z88.2 Allergy status to sulfonamides; Z88.8 Allergy status to other drugs, medicaments and biological substances
CPT/HCPCS: 36415; 80048; 85025; 85610; 85730; 86850; 86900; 86901; 93005; 93010; 96361; 96374; 96375; G0378; J0360; J0696; J1956; J2405; J2704; J2765; J3010; J3490; S0028

== ENCOUNTER 2021-05-25 09:18 | Outpatient (CLI) | payer MEDICARE | END 2021-05-25 09:19 | disposition home or self-care (01) | LOC: BICCT 09:18 | PROVIDERS: ATTEND Urology | DX: N20.0 Calculus of kidney (principal) | CPT/HCPCS: 74176 ==

== ENCOUNTER 2024-05-15 22:22 | Emergency (ER) | payer MEDICARE ==
[2024-05-15] MEDS ORDERED: Nitroglycerin 2% Ointment 1 INCH/1 GM Packet ONE (22:36)
[2024-05-15 23:03] LABS: #Basophils 0.11 10x3/uL (0.0-0.2); %Basophils 1.3 % (0.0-1.0); %Eosinophils 2.2 % (0.0-10.0); %Lymphocytes 26.6 % (21.0-51.0); %Monocytes 8.5 % (0.0-10.0); %Neutrophils 61.1 % (42.0-75.0); Hematocrit 41.6 % (42.0-52.0); Hemoglobin 13.2 g/dL (14.0-18.0); Mean Corpuscular HGB CONC 31.7 g/dL (32.0-36.0); Mean Corpuscular Hemoglobin 29.2 pg (27.0-31.0); Mean Platelet Volume 10.6 fL (7.4-10.4); Platelet Count 283 10x3/uL (130-400); RBC Distribution Width 14.9 % (11.5-14.5); Red Blood Cell (RBC) Count 4.52 mill/uL (4.70-6.10)
[2024-05-15 23:20] LABS: ALT (SGPT) 12 U/L (8-55); AST (SGOT) 15 U/L (5-34); Albumin 3.4 g/dL (3.4-4.8); Alkaline Phosphatase 52 U/L (40-110); Anion Gap 12 mmol/L (10-20); BUN (Urea Nitrogen) 18 mg/dL (8.4-25.7); Calc. Creatinine Clearance 0 mL/min (70-130); Calcium 9.2 mg/dL (7.8-10.44); Carbon Dioxide 23 mmol/L (23-31); Chloride 109 mmol/L (98-107); Estimated GFR 91; Globulin 2.9 g/dL (2.4-3.5); Glucose 111 mg/dL (83-110); Lipase 27 U/L (8-78); Potassium 3.6 mmol/L (3.5-5.1); Protein, Total 6.3 g/dL (5.8-8.1); Sodium 140 mmol/L (136-145)
[2024-05-15 23:23] LABS: Troponin I 0.011 ng/mL (< 0.028)
== END 2024-05-16 01:24 | disposition short-term general hospital (02) ==
LOC: ERS 22:22
DX: R07.2 Precordial pain (principal); I48.91 Unspecified atrial fibrillation; I10 Essential (primary) hypertension; Z87.891 Personal history of nicotine dependence
CPT/HCPCS: 36415; 71045; 80053; 83690; 83880; 84484; 85025; 93005

== ENCOUNTER 2024-09-01 09:48 | Outpatient (CLI) | payer MEDICARE ==
[~2024-09-01 09:48] MED LIST: Iopamidol 370 76% 100 ML VIAL ONE
== END 2024-09-01 09:49 | disposition home or self-care (01) ==
LOC: BICCT 09:48
PROVIDERS: ATTEND Urology
DX: N20.0 Calculus of kidney (principal); N28.89 Other specified disorders of kidney and ureter
CPT/HCPCS: 74178